=== PATIENT | male | born 2000 | race Caucasian/White ===

== ENCOUNTER 2021-09-20 23:18 | Emergency (ER) | payer OTHER ==
[~2021-09-20] VITALS: Ht 180.3 cm; Wt 81.6 kg
[2021-09-20] MEDS ORDERED: TETANUS-DIPTH-ACEL PERTUSSIS 0.5ML SYR Tdap IM ONE (23:45)
[2021-09-21 04:30] LABS: Hepatitis B Surface Antibody Positive (Negative)
[2021-09-21 05:10] VITALS: BP 132/71
== END 2021-09-21 05:10 | disposition home or self-care (01) ==
LOC: ER 23:18
DX: S69.91XA Unspecified injury of right wrist, hand and finger(s), initial encounter (principal); W46.1XXA Contact with contaminated hypodermic needle, initial encounter; Y93.89 Activity, other specified; Y92.89 Other specified places as the place of occurrence of the external cause; Y99.8 Other external cause status
CPT/HCPCS: 36415; 86703; 86706; 86803; 87340; 90471; 90715